=== PATIENT | male | born 1960 | race Caucasian/White ===

== ENCOUNTER → 2016-11-28 | Day surgery (SDC) | payer BC ==
--- NOTE | 2016-11-29 14:37 | PATH ---
Cytology Non-Gynecological Report Patient Name: EMMANUEL AGEE [facility]. Rec. #: [id number] /Age/Gender: 1960 (Age: 56) / M Account: [id number] Location: RADIOLOGY Taken: 11/28/2016 Received: 11/28/2016 Reported: 11/29/2016 Physicians: Elías Briggs M.D. Specimen(s) Received RIGHT THYROID FNA Clinical History Right thyroid nodule, 1.07 x 1.01 x 0.76 cm Final Diagnosis THYROID GLAND, RIGHT LOBE, US GUIDED FINE NEEDLE ASPIRATION BIOPSY: EVALUATION IS LIMITED BY LOW CELLULARITY. RARE FOLLICULAR EPITHELIAL CELLS AND SOME COLLOID (SEE COMMENT). Comment: Rare bland appearing follicular epithelial cells and some colloid are seen. The findings may represent a colloid nodule in proper imaging settings. Imaging correlations and followup are suggested. Electronically Signed Raji Ocampo M.D. Gross Description Received are four air dried smears, four smears in 95% alcohol, and 20 cc of bloody fluid in formalin. Four diff-quik stained slides, four Pap stained slides and one cell block are made.
== END | disposition home or self-care (01) ==
LOC: JRADIR 09:39
PROVIDERS: ATTEND Internal Medicine Endocrinology, Diabetes & Metabolism
PROC: 0G9H3ZX Drainage of Right Thyroid Gland Lobe, Percutaneous Approach, Diagnostic (ICD-10-PCS; principal; 2016-11-28)
PROC: BG44ZZZ Ultrasonography of Thyroid Gland (ICD-10-PCS; 2016-11-28)
DX: E04.1 Nontoxic single thyroid nodule (principal)
CPT/HCPCS: 76942; 88173; 88305-TC

== ENCOUNTER 2024-01-15 04:28 | Day surgery (SDC) | payer BC ==
[2024-01-13 15:01] VITALS: BMI 29.8
[2024-01-15 11:02] VITALS: RESP 18; TEMP 98.6
[2024-01-15 12:14] VITALS: BP 132/73; PULSE 60
== END 2024-01-15 11:30 | disposition home or self-care (01) ==
LOC: JASU-ENDO 04:28
PROVIDERS: ATTEND Internal Medicine Gastroenterology
PROC: 0DJD8ZZ Inspection of Lower Intestinal Tract, Via Natural or Artificial Opening Endoscopic (ICD-10-PCS; principal; 2024-01-15 10:00)
DX: Z12.11 Encounter for screening for malignant neoplasm of colon (principal); K64.8 Other hemorrhoids; K57.30 Diverticulosis of large intestine without perforation or abscess without bleeding